=== PATIENT | male | born 1980 | race Caucasian/White ===

== ENCOUNTER 2018-07-28 10:04 | Emergency (ER) | payer SELFPAY ==
[2018-07-28] MEDS ORDERED: Cyclobenzaprine 10 MG TAB ONE (11:53)
[2018-07-28] MEDS ORDERED: Ketorolac Tromethamine 60 MG/2 ML VIAL ONE (11:53)
== END 2018-07-28 12:30 | disposition home or self-care (01) ==
LOC: ERS 10:04
DX: M54.5 Low back pain (principal); M54.6 Pain in thoracic spine; F41.9 Anxiety disorder, unspecified; X50.1XXA Overexertion from prolonged static or awkward postures, initial encounter
CPT/HCPCS: 96372; J1885

== ENCOUNTER 2018-10-27 07:13 | Emergency (ER) | payer SELFPAY ==
[2018-10-27] MEDS ORDERED: cefTRIAXone\\ROCEPHIN 1 GM VIAL ONE (07:55)
[2018-10-27] MEDS ORDERED: Dexamethasone 10 MG/ML VIAL ONE (07:55)
[2018-10-27] MEDS ORDERED: Albuterol Sulfate 2.5 mg/0.5 ml Neb ONE (08:01)
[2018-10-27 08:11] LABS: #Basophils 0.1 thou/uL (0.0-0.2); #Lymphocytes 2.2 thou/uL (1.20-3.40); #Monocytes 1.3 thou/uL (0.11-0.59); #Neutrophils 6.1 thou/uL (1.40-6.50); %Basophils 0.7 % (0.0-1.0); %Eosinophils 0.5 % (0.0-10.0); %Lymphocytes 22.6 % (21.0-51.0); %Monocytes 13.6 % (0.0-10.0); %Neutrophils 62.6 % (42.0-75.0); Hemoglobin 15.1 g/dL (14.0-18.0); Mean Corpuscular HGB CONC 34.6 g/dL (32.0-36.0); Mean Corpuscular Hemoglobin 32.1 pg (27.0-31.0); Mean Corpuscular Volume 92.8 fL (78.0-98.0); Mean Platelet Volume 8.7 fL (7.4-10.4); Platelet Count 188 thou/uL (130-400); RBC Distribution Width 12.1 % (11.5-14.5); White Blood Cell (WBC) Count 9.8 thou/uL (4.8-10.8)
[2018-10-27 08:41] LABS: ALT (SGPT) 31 U/L (8-55); AST (SGOT) 21 U/L (5-34); Albumin 4.5 g/dL (3.5-5.0); Alkaline Phosphatase 114 U/L (40-150); Anion Gap 15 mmol/L (10-20); BUN (Urea Nitrogen) 28 mg/dL (8.9-20.6); Bilirubin, Total 0.8 mg/dL (0.2-1.2); Calc. Creatinine Clearance 0 mL/min (70-130); Calcium 9.5 mg/dL (7.8-10.44); Carbon Dioxide 26 mmol/L (22-29); Chloride 102 mmol/L (98-107); Estimated GFR-MDRD 21; Globulin 2.6 g/dL (2.4-3.5); Glucose 104 mg/dL (70-105); Protein, Total 7.1 g/dL (6.0-8.3); Sodium 140 mmol/L (136-145)
[2018-10-27] MEDS ORDERED: Potassium Chloride 20 MEQ TAB ONE (08:52)
--- NOTE | 2018-10-27 09:45 | RAD ---
PORTABLE CHEST: DATE: 10/27/2018. PROVIDED CLINICAL HISTORY: Cough. FINDINGS: Cardiac and mediastinal silhouette is within normal limits. Left subclavian cardiac pacing device is noted, the lead tips of which project over the expected locations of RA and RV. No focal consolidat ion, pleural fluid, or pneumothorax apparent. IMPRESSION: No evidence for an acute cardiopulmonary process. POS: C
== END 2018-10-27 09:06 | disposition home or self-care (01) ==
LOC: ERS 07:13
DX: J20.9 Acute bronchitis, unspecified (principal); N18.9 Chronic kidney disease, unspecified; E87.6 Hypokalemia; F41.9 Anxiety disorder, unspecified; F17.220 Nicotine dependence, chewing tobacco, uncomplicated
CPT/HCPCS: 71045; 80053; 82550; 83880; 84484; 85025; 87804; 93005; 94644; 96365; 96375; J0696; J1100; J7611; J7620

== ENCOUNTER 2018-11-04 16:28 | Emergency (ER) | payer SELFPAY | END 2018-11-04 18:01 | disposition home or self-care (01) | LOC: ERS 16:28 | DX: M54.5 Low back pain (principal); G89.29 Other chronic pain; F17.220 Nicotine dependence, chewing tobacco, uncomplicated | CPT/HCPCS: 99283 ==

== ENCOUNTER 2021-05-31 16:15 | Inpatient (IN) | payer SELFPAY ==
[2021-05-31 17:56] LABS: #Basophils 0.1 thou/uL (0.0-0.2); #Lymphocytes 1.8 thou/uL (1.20-3.40); #Monocytes 1.3 thou/uL (0.11-0.59); #Neutrophils 6.3 thou/uL (1.40-6.50); %Basophils 0.8 % (0.0-1.0); %Eosinophils 0.2 % (0.0-10.0); %Lymphocytes 18.8 % (21.0-51.0); %Monocytes 13.5 % (0.0-10.0); %Neutrophils 66.7 % (42.0-75.0); Hemoglobin 15.3 g/dL (14.0-18.0); Mean Corpuscular HGB CONC 34.3 g/dL (32.0-36.0); Mean Corpuscular Hemoglobin 32.5 pg (27.0-31.0); Mean Corpuscular Volume 94.7 fL (78.0-98.0); Mean Platelet Volume 9.2 fL (7.4-10.4); Platelet Count 144 thou/uL (130-400); RBC Distribution Width 11.6 % (11.5-14.5); White Blood Cell (WBC) Count 9.4 thou/uL (4.8-10.8)
[2021-05-31 18:20] LABS: ALT (SGPT) 53 U/L (8-55); AST (SGOT) 30 U/L (5-34); Albumin 4.5 g/dL (3.5-5.0); Alkaline Phosphatase 103 U/L (40-110); Anion Gap 12 mmol/L (10-20); BUN (Urea Nitrogen) 36 mg/dL (8.9-20.6); Bilirubin, Total 0.7 mg/dL (0.2-1.2); Calc. Creatinine Clearance 0 mL/min (70-130); Calcium 9.7 mg/dL (7.8-10.44); Carbon Dioxide 28 mmol/L (22-29); Chloride 106 mmol/L (98-107); Globulin 2.4 g/dL (2.4-3.5); Glucose 84 mg/dL (70-105); Potassium 3.5 mmol/L (3.5-5.1); Protein, Total 6.9 g/dL (6.0-8.3); Sodium 142 mmol/L (136-145)
[2021-05-31] MEDS ORDERED: Fentanyl 100 MCG/2 ML VIAL ONE ×3 (18:23→23:54)
[2021-05-31 18:39] LABS: Magnesium 2.2 mg/dL (1.6-2.6)
[2021-05-31 19:41] LABS: Bacteria/HPF None Seen HPF (None Seen); Bilirubin Negative (Negative); Blood, Urine 2+ (Negative); Clarity Clear (Clear); Glucose, Urine (Dipstick) Normal (Negative); Ketone, Urine Negative (Negative); Leukocyte Negative Leu/uL (Negative); Nitrite Negative (Negative); Protein, Urine (Dipstick) 100 mg/dL (Neg-Trace); RBC/HPF 0-3 HPF (0-3); Specific Gravity, Urine 1.018 (1.002-1.036); Squamous Epithelial 0-3 HPF (0-3); Urobilinogen Normal mg/dL (Less than 2); WBC/HPF 0-3 HPF (0-3)
[2021-05-31 19:48] LABS: Amphetamine Not Detected (NotDetected); Barbiturates Screen Not Detected (NotDetected); Benzodiazepine Screen Detected (NotDetected); Cocaine Metabolite Screen Not Detected (NotDetected); Methadone Not Detected (NotDetected); Methamphetamine Not Detected (NotDetected); Opiate Screen Not Detected (NotDetected); Oxycodone Screen Not Detected (NotDetected); Phencyclidine (PCP) Not Detected (NotDetected); THC/Cannabinoid Screen Not Detected (NotDetected); Tricyclic Screen Not Detected (NotDetected)
[2021-05-31] MEDS ORDERED: Aspirin Chewable 81 MG TAB ONE (23:18)
[2021-05-31] MEDS ORDERED: Nitroglycerin 0.4 MG TAB 1 EACH ONE (23:18)
[2021-05-31 23:57] LABS: Troponin I Less than 0.010 ng/mL (< 0.028)
[2021-06-01 00:04] LABS: SARS-CoV-2 NAA Rapid Test Not Detected (NotDetected)
[2021-06-01 02:42] LABS: Troponin I Less than 0.010 ng/mL (< 0.028)
[2021-06-01] MEDS ORDERED: Nitroglycerin 0.4 MG TAB (25 Tab Bottle) SL PRN (04:46)
[2021-06-01 05:52] VITALS: BMI 34.3
[2021-06-01] MEDS ORDERED: Potassium Chloride 20 MEQ TAB PO SCH (06:15)
[2021-06-01] MEDS ORDERED: Electrolyte Replacement Protocol 1 EACH FS SCH (06:15)
[2021-06-01 06:31] LABS: Hemoglobin 14.7 g/dL (14.0-18.0); Mean Corpuscular HGB CONC 33.9 g/dL (32.0-36.0); Mean Corpuscular Hemoglobin 32.4 pg (27.0-31.0); Mean Corpuscular Volume 95.5 fL (78.0-98.0); Platelet Count 127 thou/uL (130-400); RBC Distribution Width 11.5 % (11.5-14.5); Red Blood Cell (RBC) Count 4.54 mill/uL (4.70-6.10); White Blood Cell (WBC) Count 8.7 thou/uL (4.8-10.8)
[2021-06-01 06:53] LABS: Anion Gap 10 mmol/L (10-20); BUN (Urea Nitrogen) 37 mg/dL (8.9-20.6); Calc. Creatinine Clearance 46 mL/min (70-130); Calcium 9.2 mg/dL (7.8-10.44); Carbon Dioxide 30 mmol/L (22-29); Chloride 106 mmol/L (98-107); Glucose 114 mg/dL (70-105); Potassium 3.3 mmol/L (3.5-5.1); Sodium 143 mmol/L (136-145)
[2021-06-01 08:00] LABS: Eosinophils 3 % (0-10); Lymphocytes 29 % (21-51); MDiff Complete? YES; Monocytes 6 % (0-10); Neutrophil 62 % (42-75); Platelet Morphology Comment Appears Decreased; RBC Morphology Normal
[2021-06-01] MEDS ORDERED: Morphine 4 MG/ML VIAL ONE ×3 (08:41→19:16)
[2021-06-01] MEDS ORDERED: Aspirin Chewable 81 MG TAB ONE (08:43)
[2021-06-01] MEDS ORDERED: Regadenoson 0.4 MG/5 ML SYRINGE ONE (08:46)
[2021-06-01] MEDS: Aspirin Chewable 81 MG TAB PO SCH (08:49)
[2021-06-01] MEDS: Heparin 5,000 UNITS/ML VIAL SC SCH ×2 (08:49→21:07)
[2021-06-01] MEDS: Morphine 2 MG/ML VIAL SLOW IVP PRN ×3 (08:49→19:27)
[2021-06-01] MEDS ORDERED: Enoxaparin Sodium 40 MG/0.4 ML SYRINGE SC SCH (09:00)
[2021-06-01] MEDS ORDERED: Acetaminophen 325 MG TAB PO PRN (11:11)
[2021-06-01] MEDS ORDERED: Acetaminophen 325 MG TAB ONE ×2 (11:19)
[2021-06-02] MEDS: Morphine 2 MG/ML VIAL SLOW IVP PRN ×4 (00:14→21:39)
[2021-06-02 03:02] LABS: Troponin I Less than 0.010 ng/mL (< 0.028)
[2021-06-02 08:31] LABS: Anion Gap 11 mmol/L (10-20); BUN (Urea Nitrogen) 33 mg/dL (8.9-20.6); Calc. Creatinine Clearance 52 mL/min (70-130); Calcium 8.9 mg/dL (7.8-10.44); Carbon Dioxide 27 mmol/L (22-29); Chloride 106 mmol/L (98-107); Glucose 94 mg/dL (70-105); Potassium 3.5 mmol/L (3.5-5.1); Sodium 140 mmol/L (136-145)
[2021-06-02 08:49] LABS: Band 3 % (5-11); Hemoglobin 14.9 g/dL (14.0-18.0); Lymphocytes 23 % (21-51); MDiff Complete? YES; Mean Corpuscular HGB CONC 34.2 g/dL (32.0-36.0); Mean Corpuscular Hemoglobin 32.5 pg (27.0-31.0); Mean Corpuscular Volume 95.1 fL (78.0-98.0); Mean Platelet Volume 9.3 fL (7.4-10.4); Monocytes 5 % (0-10); Neutrophil 65 % (42-75); Platelet Count 145 thou/uL (130-400); Platelet Morphology Comment Appears Adequate; RBC Distribution Width 11.6 % (11.5-14.5); RBC Morphology Normal; Reactive Lymphocytes 2 % (0-10); Red Blood Cell (RBC) Count 4.58 mill/uL (4.70-6.10)
[2021-06-02] MEDS: Aspirin Chewable 81 MG TAB PO SCH (10:04)
[2021-06-02] MEDS: Heparin 5,000 UNITS/ML VIAL SC SCH ×2 (10:05→21:38)
[2021-06-02 23:29] LABS: Troponin I Less than 0.010 ng/mL (< 0.028)
[2021-06-03] MEDS: Morphine 2 MG/ML VIAL SLOW IVP PRN ×4 (02:13→17:54)
[2021-06-03 04:48] LABS: #Basophils 0.1 thou/uL (0.0-0.2); #Monocytes 1.2 thou/uL (0.11-0.59); #Neutrophils 4.9 thou/uL (1.40-6.50); %Basophils 0.8 % (0.0-1.0); %Eosinophils 0.4 % (0.0-10.0); %Lymphocytes 24.6 % (21.0-51.0); %Monocytes 14.7 % (0.0-10.0); %Neutrophils 59.5 % (42.0-75.0); Hemoglobin 14.7 g/dL (14.0-18.0); Mean Corpuscular HGB CONC 34.4 g/dL (32.0-36.0); Mean Corpuscular Hemoglobin 32.6 pg (27.0-31.0); Mean Corpuscular Volume 94.8 fL (78.0-98.0); Mean Platelet Volume 9.3 fL (7.4-10.4); Platelet Count 149 thou/uL (130-400); RBC Distribution Width 11.5 % (11.5-14.5); Red Blood Cell (RBC) Count 4.52 mill/uL (4.70-6.10); White Blood Cell (WBC) Count 8.2 thou/uL (4.8-10.8)
[2021-06-03 05:06] LABS: Anion Gap 8 mmol/L (10-20); BUN (Urea Nitrogen) 31 mg/dL (8.9-20.6); Calc. Creatinine Clearance 54 mL/min (70-130); Carbon Dioxide 33 mmol/L (22-29); Chloride 104 mmol/L (98-107); Glucose 103 mg/dL (70-105); Potassium 3.5 mmol/L (3.5-5.1); Sodium 141 mmol/L (136-145)
[2021-06-03] MEDS: Heparin 5,000 UNITS/ML VIAL SC SCH ×2 (09:07→20:49)
[2021-06-03] MEDS: Aspirin Chewable 81 MG TAB PO SCH (09:08)
[2021-06-03] MEDS ORDERED: Famotidine 20 MG TAB PO SCH (15:00)
[2021-06-03] MEDS: HYDROcodone/Acetaminophen 5/325 mg Tablet PO PRN ×2 (15:55→22:39)
[2021-06-03] MEDS: Sodium Chloride 0.9% 1,000 ML IV SCH (18:09)
[2021-06-03 19:42] LABS: Creatinine, Urine 164.5 mg/dL (63-166)
[2021-06-03] MEDS: Famotidine 20 MG TAB PO SCH (20:49)
[2021-06-04] MEDS: Morphine 2 MG/ML VIAL SLOW IVP PRN (00:19)
[2021-06-04] MEDS: Sodium Chloride 0.9% 1,000 ML IV SCH ×2 (02:17→09:31)
[2021-06-04 07:58] LABS: Albumin 3.5 g/dL (3.5-5.0); Anion Gap 9 mmol/L (10-20); BUN (Urea Nitrogen) 30 mg/dL (8.9-20.6); BUN/Creatinine Ratio 9.38; Calc. Creatinine Clearance 57 mL/min (70-130); Calcium 8.6 mg/dL (7.8-10.44); Carbon Dioxide 29 mmol/L (22-29); Chloride 107 mmol/L (98-107); Glucose 100 mg/dL (70-105); Phosphorus 3.6 mg/dL (2.3-4.7); Potassium 3.7 mmol/L (3.5-5.1); Sodium 141 mmol/L (136-145)
[2021-06-04] MEDS: Aspirin Chewable 81 MG TAB PO SCH (09:24)
[2021-06-04] MEDS: HYDROcodone/Acetaminophen 5/325 mg Tablet PO PRN (09:25)
[2021-06-04] MEDS: Famotidine 20 MG TAB PO SCH (09:25)
[2021-06-04] MEDS: Heparin 5,000 UNITS/ML VIAL SC SCH (09:25)
[2021-06-04 11:04] VITALS: BP 106/61; TEMP 98
== END 2021-06-04 13:55 | disposition home or self-care (01) | DRG 313 ==
LOC: ERS 16:15 → ERHOLD 22:59 → OBSVTOIN 06-01 12:30 → 2NO 06-01 20:42
PROVIDERS: ADMIT Student in an Organized Health Care Education/Training Program; ATTEND Internal Medicine
DX: R07.89 Other chest pain (principal); N18.4 Chronic kidney disease, stage 4 (severe); I50.22 Chronic systolic (congestive) heart failure; I42.9 Cardiomyopathy, unspecified; E87.3 Alkalosis; N17.9 Acute kidney failure, unspecified; F17.220 Nicotine dependence, chewing tobacco, uncomplicated; F41.9 Anxiety disorder, unspecified; Z20.822 Contact with and (suspected) exposure to COVID-19; Z85.820 Personal history of malignant melanoma of skin; Z95.0 Presence of cardiac pacemaker; Z88.8 Allergy status to other drugs, medicaments and biological substances
CPT/HCPCS: 0240U; 36415; 71045; 72125; 76770; 78452; 80048; 80053; 80069; 80306; 81003; 81015; 82550; 82570; 83735; 83880; 83970; 84156; 84300; 84443; 84484; 85025; 93005; 93017; 93306; 94760; 96374; 96375; 96376; A9500; G0378; J1644; J2270; J2785; J3010

== ENCOUNTER 2022-05-20 22:10 | Emergency (ER) | payer BC ==
[2022-05-20] MEDS ORDERED: Fentanyl 100 MCG/2 ML VIAL ONE (22:25)
[2022-05-20 22:35] LABS: #Basophils 0.1 thou/uL (0.0-0.2); #Eosinphils 0.1 thou/uL (0.0-0.7); #Lymphocytes 2.9 thou/uL (1.20-3.40); #Monocytes 1.6 thou/uL (0.11-0.59); #Neutrophils 6.4 thou/uL (1.40-6.50); %Basophils 0.8 % (0.0-1.0); %Eosinophils 0.6 % (0.0-10.0); %Lymphocytes 26.4 % (21.0-51.0); %Monocytes 14.4 % (0.0-10.0); %Neutrophils 57.8 % (42.0-75.0); Hemoglobin 15.2 g/dL (14.0-18.0); Mean Corpuscular HGB CONC 35.2 g/dL (32.0-36.0); Mean Corpuscular Hemoglobin 34.6 pg (27.0-31.0); Mean Corpuscular Volume 98.2 fL (78.0-98.0); Mean Platelet Volume 9.1 fL (7.4-10.4); Platelet Count 138 thou/uL (130-400); RBC Distribution Width 12.9 % (11.5-14.5); Red Blood Cell (RBC) Count 4.39 mill/uL (4.70-6.10)
[2022-05-20 22:59] LABS: ALT (SGPT) 68 U/L (8-55); AST (SGOT) 44 U/L (5-34); Albumin 4.2 g/dL (3.5-5.0); Alkaline Phosphatase 118 U/L (40-110); Anion Gap 17 mmol/L (10-20); BUN (Urea Nitrogen) 25 mg/dL (8.9-20.6); Bilirubin, Total 0.5 mg/dL (0.2-1.2); CK (CPK) 189 U/L (30-200); Calc. Creatinine Clearance 0 mL/min (70-130); Calcium 10.1 mg/dL (7.8-10.44); Carbon Dioxide 25 mmol/L (22-29); Chloride 103 mmol/L (98-107); Estimated GFR 22; Globulin 2.3 g/dL (2.4-3.5); Glucose 92 mg/dL (70-105); Protein, Total 6.5 g/dL (6.0-8.3); Sodium 142 mmol/L (136-145)
[2022-05-20 23:02] LABS: Potassium 2.9 mmol/L (3.5-5.1)
[2022-05-20] MEDS ORDERED: Diazepam 5 MG TAB ONE (23:07)
[2022-05-21] MEDS ORDERED: Potassium Chloride 20 MEQ TAB ONE (00:05)
[2022-05-21] MEDS ORDERED: Magnesium 2 GM/50 ML BAG (IN WATER) ONE (00:15)
== END 2022-05-21 01:21 | disposition home or self-care (01) ==
LOC: ERS 22:10
DX: R55 Syncope and collapse (principal); R51.9 Headache, unspecified; E87.6 Hypokalemia; R20.0 Anesthesia of skin; R20.2 Paresthesia of skin; I45.10 Unspecified right bundle-branch block; F17.220 Nicotine dependence, chewing tobacco, uncomplicated; N18.4 Chronic kidney disease, stage 4 (severe); Z85.820 Personal history of malignant melanoma of skin; Z95.0 Presence of cardiac pacemaker; Z79.899 Other long term (current) drug therapy
CPT/HCPCS: 36416; 70450; 80053; 82550; 84484; 85025; 93005; 96374; J3010; J3475

== ENCOUNTER 2023-05-01 10:19 | Emergency (ER) | payer BC ==
[2023-05-01] MEDS ORDERED: Boostrix 0.5 ML (Tdap) VIAL (>/=7 yrs of age) ONE ×2 (10:47→11:03)
[2023-05-01] MEDS ORDERED: CEFAZOLIN 1 GM VIAL ONE ×2 (10:47→12:02)
[2023-05-01] MEDS ORDERED: Morphine 4 MG/ML VIAL ONE ×3 (10:47→11:28)
[2023-05-01 11:59] LABS: #Basophils 0.1 thou/uL (0.0-0.2); #Eosinphils 0.2 thou/uL (0.0-0.7); #Monocytes 0.8 thou/uL (0.11-0.59); #Neutrophils 6.9 thou/uL (1.40-6.50); %Basophils 0.6 % (0.0-1.0); %Eosinophils 2.6 % (0.0-10.0); %Lymphocytes 14.3 % (21.0-51.0); %Neutrophils 73.3 % (42.0-75.0); Hemoglobin 16.3 g/dL (14.0-18.0); Mean Corpuscular HGB CONC 34.9 g/dL (32.0-36.0); Mean Corpuscular Hemoglobin 33.2 pg (27.0-31.0); Mean Corpuscular Volume 95.1 fl (78.0-98.0); Mean Platelet Volume 11.9 fL (7.4-10.4); Platelet Count 161 10x3/uL (130-400); RBC Distribution Width 12.5 % (11.5-14.5); Red Blood Cell (RBC) Count 4.91 mill/uL (4.70-6.10); White Blood Cell (WBC) Count 9.4 10x3/uL (4.8-10.8)
[2023-05-01 12:30] LABS: ALT (SGPT) 47 U/L (8-55); AST (SGOT) 30 U/L (5-34); Albumin 4.7 g/dL (3.5-5.0); Alkaline Phosphatase 109 U/L (40-110); Anion Gap 17 mmol/L (10-20); BUN (Urea Nitrogen) 33 mg/dL (8.9-20.6); Bilirubin, Total 0.9 mg/dL (0.2-1.2); Calc. Creatinine Clearance 0 mL/min (70-130); Carbon Dioxide 22 mmol/L (22-29); Chloride 109 mmol/L (98-107); Estimated GFR 23; Globulin 2.5 g/dL (2.4-3.5); Glucose 118 mg/dL (70-105); Potassium 3.6 mmol/L (3.5-5.1); Protein, Total 7.2 g/dL (6.0-8.3); Sodium 144 mmol/L (136-145)
[2023-05-01] MEDS ORDERED: fentaNYL PF 100 MCG/2 ML SYRINGE ONE (13:14)
[2023-05-01] MEDS ORDERED: Acetaminophen 500 MG TAB ONE (13:20)
[2023-05-01] MEDS ORDERED: Sodium Chloride 0.9% 100 ML ONE (13:27)
[2023-05-01] MEDS ORDERED: CEFAZOLIN 2 GM VIAL ONE (13:27)
[2023-05-01] MEDS ORDERED: Ondansetron PF 4 MG/2 ML Vial ONE (13:40)
[2023-05-01] MEDS ORDERED: PROPOFOL 200 MG/20 ML VIAL ONE (13:40)
[2023-05-01] MEDS ORDERED: Lidocaine 1% PF 5 ML VIAL ONE (13:40)
[2023-05-01] MEDS ORDERED: Dexamethasone 20 MG/5 ML VIAL ONE (13:40)
[2023-05-01] MEDS ORDERED: Ondansetron HCl/PF 4 MG/2 ML Vial IVP PRN (14:26)
[2023-05-01] MEDS ORDERED: PACU-Morphine 4MG/ML VIAL SLOW IVP PRN (14:26)
[2023-05-01] MEDS ORDERED: Promethazine HCl 25 MG/ML VIAL IM PRN (14:26)
[2023-05-01] MEDS ORDERED: HYDROmorphone 2 MG/ML VIAL SLOW IVP PRN (14:26)
[2023-05-01] MEDS ORDERED: Morphine Sulfate 2 MG/ML SYRINGE SLOW IVP PRN (14:26)
[2023-05-01] MEDS ORDERED: oxyCODONE 5 MG TAB ONE (15:17)
== END 2023-05-01 13:11 | disposition short-term general hospital (02) ==
LOC: ERS 10:19
DX: S81.812A Laceration without foreign body, left lower leg, initial encounter (principal); F17.220 Nicotine dependence, chewing tobacco, uncomplicated; W29.3XXA Contact with powered garden and outdoor hand tools and machinery, initial encounter; Z23 Encounter for immunization
CPT/HCPCS: 80053; 85025; 90471; 90715; 96365; 96366; 96375; 96376; G0390; J0690; J1100; J2270; J2405; J2704; J3490

== ENCOUNTER 2023-05-03 15:06 | Emergency (ER) | payer BC, OTHER ==
[2023-05-03] MEDS ORDERED: HYDROmorphone 0.5 MG/0.5 ML SYRINGE ONE (15:32)
== END 2023-05-03 17:56 | disposition home or self-care (01) ==
LOC: ERS 15:06
DX: M79.605 Pain in left leg (principal); N18.4 Chronic kidney disease, stage 4 (severe); F17.220 Nicotine dependence, chewing tobacco, uncomplicated
CPT/HCPCS: 96372; J1170

== ENCOUNTER 2023-09-25 14:23 | Emergency (ER) | payer OTHER, BC ==
[2023-09-25 15:30] LABS: Hematocrit 45.9 % (42.0-52.0); Hemoglobin 15.9 g/dL (14.0-18.0); Mean Corpuscular HGB CONC 34.6 g/dL (32.0-36.0); Mean Corpuscular Hemoglobin 33.1 pg (27.0-31.0); Mean Corpuscular Volume 95.4 fl (78.0-98.0); Mean Platelet Volume 11.1 fL (7.4-10.4); Platelet Count 161 10x3/uL (130-400); RBC Distribution Width 13.6 % (11.5-14.5); Red Blood Cell (RBC) Count 4.81 mill/uL (4.70-6.10); White Blood Cell (WBC) Count 7.7 10x3/uL (4.8-10.8)
[2023-09-25 15:31] LABS: Delete Auto Diff?? YES; Manual Diff?? YES
[2023-09-25] MEDS ORDERED: Morphine 4 MG/ML VIAL ONE ×2 (15:41→18:08)
[2023-09-25] MEDS ORDERED: Ondansetron PF 4 MG/2 ML Vial ONE ×2 (15:41→18:08)
[2023-09-25 16:04] LABS: ALT (SGPT) 37 U/L (8-55); AST (SGOT) 25 U/L (5-34); Albumin 4.8 g/dL (3.5-5.0); Alkaline Phosphatase 94 U/L (40-110); Anion Gap 16 mmol/L (10-20); BUN (Urea Nitrogen) 28 mg/dL (8.9-20.6); Bilirubin, Total 0.9 mg/dL (0.2-1.2); Calc. Creatinine Clearance 0 mL/min (70-130); Calcium 10.1 mg/dL (7.8-10.44); Carbon Dioxide 25 mmol/L (22-29); Chloride 106 mmol/L (98-107); Estimated GFR 25; Globulin 2.7 g/dL (2.4-3.5); Glucose 77 mg/dL (70-105); Lipase 31 U/L (8-78); Potassium 3.8 mmol/L (3.5-5.1); Protein, Total 7.5 g/dL (6.0-8.3); Sodium 143 mmol/L (136-145)
[2023-09-25 16:08] LABS: Troponin I Less than 0.010 ng/mL (< 0.028)
[2023-09-25 17:14] LABS: Band 8 % (5-11); CellaVision Operator ID LAB.MJL; Eosinophils 11 % (0-10); Lymphocytes 11 % (21-51); Monocytes 13 % (0-10); Neutrophil 53 % (42-75); Platelet Adequacy Comment Platelets Normal; RBC Morphology Within Normal Limits; Reactive Lymphocytes 4 % (0-10); Total Cell Count 100
[2023-09-25 19:39] LABS: Bacteria/HPF None Seen HPF (None Seen); Bilirubin Negative (Negative); Blood, Urine 1+ (Negative); CAUTI Indications for Culture Pelvic or flank pain; Clarity Clear (Clear); Glucose, Urine (Dipstick) Normal (Negative); Ketone, Urine Negative (Negative); Leukocyte Negative Leu/uL (Negative); Nitrite Negative (Negative); Protein, Urine (Dipstick) 50 mg/dL (Neg-Trace); RBC/HPF None Seen HPF (0-3); Specific Gravity, Urine 1.008 (1.002-1.036); Squamous Epithelial None Seen HPF (0-3); Urobilinogen Normal mg/dL (Less than 2); WBC/HPF None Seen HPF (0-3); pH, Urine 6.5 (5.0-9.0)
[2023-09-25 19:41] LABS: Urine Culture Reflex No No
== END 2023-09-25 21:43 | disposition home or self-care (01) ==
LOC: ERS 14:23
DX: R10.33 Periumbilical pain (principal); R11.0 Nausea; F17.220 Nicotine dependence, chewing tobacco, uncomplicated
CPT/HCPCS: 36415; 74176; 80053; 81001; 83690; 84484; 85025; 93005; 96361; 96374; 96375; 96376; J2270; J2405